=== PATIENT | female | born 1985 | race Two or more races ===

== ENCOUNTER 2025-07-09 11:39 | Emergency (ER) | payer OTHER ==
[2025-07-09] MEDS ORDERED: ONDANSETRON 4 MG/2 ML VIAL ONE (12:41)
[2025-07-09] MEDS ORDERED: ACETAMINOPHEN INJECTION 100 ML ONE (12:41)
[2025-07-09] MEDS ORDERED: METOCLOPRAMIDE HCL INJECTION 10 MG/2 ML VIAL ONE (12:41)
[2025-07-09] MEDS: SODIUM CHLORIDE 0.9% 500 ML INFUS.BAG IV ONE (13:01)
[2025-07-09] MEDS: ACETAMINOPHEN 1000 MG/100 ML BAG IVPB ONE (13:02)
[2025-07-09] MEDS: METOCLOPRAMIDE HCL INJECTION 10 MG/2 ML VIAL IVPB ONE (13:03)
[2025-07-09] MEDS: ONDANSETRON 4 MG/2 ML VIAL IVPB ONE (13:04)
[2025-07-09 13:10] LABS: ABSOLUTE IMMATURE GRANULOCYTES 0.05 x10^3/uL (0.0-0.031); BASOPHILS # 0.09 x10^3/uL (0.01-0.08); EOSINOPHIL % 3.3 % (0.7-5.8); EOSINOPHILS # 0.28 x10^3/uL (0.04-0.36); MCHC 32.7 g/dl (32.2-35.5); MEAN CELL VOLUME 96.5 fl (79.4-94.8); MEAN PLT VOLUME 9.8 fl (9.4-12.3); MONOCYTE # 0.74 x10^3/uL (0.24-0.86); MONOCYTE % 8.8 % (4.7-12.5); RDW 12.8 % (12.2-17.1)
[2025-07-09 13:39] VITALS: BP 137/83; PULSE 94; RESP 20; TEMP 98.3; BMI 30.2
[2025-07-09 14:25] LABS: URINE APPEARANCE CLEAR; URINE BILIRUBIN NEGATIVE (NEGATIVE); URINE COLOR YELLOW; URINE GLUCOSE (UA) NEGATIVE (NEGATIVE); URINE KETONE NEGATIVE (NEGATIVE); URINE LEUK ESTERASE NEGATIVE (NEGATIVE); URINE NITRITE NEGATIVE (NEGATIVE); URINE PROTEIN NEGATIVE (NEGATIVE); URINE UROBILINOGEN 0.2 mg/dL (0.2-1.0)
[2025-07-09 15:09] LABS: GLUCOSE,RANDOM 83 mg/dL (74-106)
[2025-07-09 15:10] LABS: TOT PROT 7.6 g/dl (6.4-8.2)
[2025-07-09 15:11] LABS: CO2 25 mmol/L (21-32)
[2025-07-09 15:12] LABS: ALK PHOS 50 U/L (40-150)
[2025-07-09 15:15] LABS: CREATININE 0.61 mg/dL (0.55-1.3); SGOT/AST 17 U/L (5-34)
[2025-07-09 15:29] LABS: SGPT/ALT < 6 U/L (0-55)
== END 2025-07-09 18:50 | disposition home or self-care (01) ==
LOC: JER 11:39
PROC: 3E033NZ Introduction of Analgesics, Hypnotics, Sedatives into Peripheral Vein, Percutaneous Approach (ICD-10-PCS; principal; 2025-07-09)
PROC: 3E033GC Introduction of Other Therapeutic Substance into Peripheral Vein, Percutaneous Approach (ICD-10-PCS; 2025-07-09)
PROC: 3E033GC Introduction of Other Therapeutic Substance into Peripheral Vein, Percutaneous Approach (ICD-10-PCS; 2025-07-09)
DX: R51.9 Headache, unspecified (principal); H53.141 Visual discomfort, right eye; H54.61 Unqualified visual loss, right eye, normal vision left eye
CPT/HCPCS: 36415; 70450-TC; 70496-TC; 70498-TC; 80053; 80164; 80175; 80177; 81003; 82962; 83690; 83735; 84484; 84703; 85025; 87086; 93005; 93010; 99285-25